=== PATIENT | female | born 1940 | race Caucasian/White ===

== ENCOUNTER 2017-04-25 14:52 | Emergency (ER) | payer OTHER ==
--- NOTE | 2017-04-25 15:08 | CPEKG ---
Heart Rate: 80 RR Interval: 750 P-R Interval: 216 QRSD Interval: 92 QT Interval: 376 QTC Interval: 434 P [place]: 55 QRS [place]: 49 T Wave [place]: 57 EKG Severity - OTHERWISE NORMAL ECG - EKG Impression: SINUS RHYTHM EKG Impression: ATRIAL PREMATURE COMPLEX Electronically Signed By: Lei Cordova 25-Apr-2017 19:32:19
--- NOTE | 2017-04-25 15:08 | EDPHY ---
H & P Time Seen by Provider: 04/25/17 15:07 HPI/ROS: CHIEF COMPLAINT: Diaphoresis, palpitations, nausea and epigastric pressure HISTORY OF PRESENT ILLNESS: The patient presents to the ED with diaphoresis, palpitations, nausea and epigastric pressure. Her symptoms began approximately an hour prior to arrival while eating lunch. The patient did not have vomiting or diarrhea. The patient states that her symptoms have somewhat improved however not entirely resolved. The patient denies any complaints of asymmetric calf pain or swelling. She denies history of recent surgery. The patient does have a history of diabetes controlled with diet. She is also on a statin for hyperlipidemia. The patient has no recent surgery. The patient denies any melena or hematemesis. Patient states that her symptoms are currently mild in nature and she primarily is bothered by nausea and generalized weakness. The patient did received 2 cortisone injections for hip bursitis over the past 2 weeks. The patient has had some side effects including headache, poor appetite in general malaise following these injections. REVIEW OF SYSTEMS: A comprehensive 10 point review of systems is otherwise negative aside from elements mentioned in the history of present illness. Source: Family Exam Limitations: No limitations - Medical/Surgical History PMH: Past medical history: Diabetes, hyperlipidemia - Family History Significant Family History: No pertinent family hx - Social History Smoking Status: Former smoker Alcohol Use: Occasionally - Physical Exam Exam: General Appearance: Alert, no distress Eyes: Pupils equal and round no pallor or injection ENT, Mouth: Mucous membranes moist Respiratory: There are no retractions, lungs are clear to auscultation Cardiovascular: Regular rate and rhythm Gastrointestinal: Minimal epigastric tenderness to palpation, no peritoneal signs, normal bowel sounds Neurological: A&O, normal motor function, normal sensory exam, normal cranial nerves Skin: Warm and dry, no rashes Musculoskeletal: Neck is supple nontender Extremities: symmetrical, full range of motion Constitutional: Initial Vital Signs Temperature (C) 36.6 C 04/25/17 15:04 Heart Rate 86 04/25/17 15:04 Respiratory Rate 20 04/25/17 15:04 Blood Pressure 158/92 H 04/25/17 15:04 O2 Sat (%) 99 04/25/17 15:04 O2 Delivery Mode Room Air Allergies/Adverse Reactions: codeine Allergy (Verified 04/25/17 15:09) hydromorphone [From Dilaudid] Allergy (Verified 04/25/17 15:09) Home Medications: Medication Instructions Recorded Aloe Vera 04/25/17 Atorvastatin Calcium 04/25/17 CO Q-10 04/25/17 Calcium Citrate 04/25/17 Carisoprodol 04/25/17 Celecoxib 04/25/17 Cinnamon 04/25/17 Curcumin 04/25/17 Fish Oil 04/25/17 Florasinus 04/25/17 Lexapro 04/25/17 Magnesium 04/25/17 Migrelief Caplet 04/25/17 Omeprazole 04/25/17 Ondansetron Odt [Zofran Odt] 4 mg PO Q4PRN PRN #20 tab 04/25/17 Preservision Softgel 04/25/17 traMADol 04/25/17 Medical Decision Making - Diagnostics EKG Interpretation: EKG: Complete interpretation has been separately recorded in the [employer] archive. Summary impression: Sinus rhythm, multiple PACs noted, no ST segment elevation or depression appreciated ED Course/Re-evaluation: The patient presents to the ED with complaints of epigastric pain, nausea, palpitations and diaphoresis. The patient has no evidence of acute ischemia on her initial EKG. Her initial troponin is normal. The patient did have minimal epigastric discomfort. She had an IV established. She received a L of normal saline. She received 4 mg of IV Zofran. The patient's D-dimer is negative which I feel adequately excludes pulmonary embolism. The patient's GI labs including her liver function tests and lipase are within normal limits. I re-evaluated the patient at 4:30 p.m.. She tells me she is feeling better and is essentially symptom-free. The patient did undergo a repeat EKG which continues to demonstrate no evidence of ischemia. The patient did endorse some symptoms of dark urine during the time of the 2nd evaluation. A urinalysis was obtained which demonstrates no acute abnormalities. I discussed with patient the plan to obtain a 4 hour troponin in the emergency department. Patient presents to the ED after an episode of atypical chest pain. She does understand that we cannot fully exclude the presence of coronary artery disease. Patient has had 2-troponins in the ED. Her nausea has resolved. I had a lengthy discussion with options with the patient. She has been offered admission to the hospital verses discharged home and returning for recurrent symptoms. She is comfortable being discharged at this point time. She has been informed that we cannot fully exclude the presence of coronary artery disease and close follow up with Cardiology is indicated. I do feel the patient likely is experiencing primarily a GI related phenomena. She will be given a prescription for Zofran for management of the symptoms. Differential Diagnosis: Differential diagnosis considered includes acute coronary syndrome, pulmonary embolism, pancreatitis, cholecystitis, peptic ulcer disease, dehydration, gastroenteritis - Data Points Laboratory Results: Laboratory Results 04/25/17 15:25 04/25/17 15:25 04/25/17 04/25/17 04/25/17 18:05 16:40 16:40 WBC RBC Hgb Hct MCV MCH MCHC RDW Plt Count MPV Neut % (Auto) Lymph % (Auto) [place] % (Auto) Eos % (Auto) Baso % (Auto) Nucleat RBC Rel Count Absolute Neuts (auto) Absolute Lymphs (auto) Absolute Monos (auto) Absolute Eos (auto) Absolute Basos (auto) Absolute Nucleated RBC Immature Gran % Immature Gran # D-Dimer Sodium Potassium Chloride Carbon Dioxide Anion Gap BUN Creatinine Estimated GFR Glucose Calcium Total Bilirubin Conjugated Bilirubin Unconjugated Bilirubin AST ALT Alkaline Phosphatase Troponin I 0.012 ng/mL ng/mL (0-0.034) Total Protein Albumin Lipase Urine Color YELLOW Cancelled Urine Appearance CLEAR Cancelled Urine pH 7.0 Cancelled (5.0-7.5) Ur Specific [place] 1.015 Cancelled (1.002-1.030) Urine Protein NEGATIVE Cancelled (NEGATIVE) Urine Ketones NEGATIVE Cancelled (NEGATIVE) Urine Blood NEGATIVE Cancelled (NEGATIVE) Urine Nitrate NEGATIVE Cancelled (NEGATIVE) Urine Bilirubin NEGATIVE Cancelled (NEGATIVE) Urine Urobilinogen 0.2 EU EU Cancelled (0.2-1.0) Ur Leukocyte Esterase NEGATIVE Cancelled (NEGATIVE) Urine RBC NONE SEEN /hpf /hpf (0-3) Urine WBC NONE SEEN /hpf /hpf (0-3) Ur Epithelial Cells 1+ /lpf /lpf (NONE-1+) Urine Mucus TRACE /lpf /lpf (NONE-1+) Urine Glucose NEGATIVE Cancelled (NEGATIVE) 04/25/17 04/25/17 04/25/17 15:25 15:25 15:25 WBC 10.40 10^3/uL H 10^3/uL (3.80-9.50) RBC 5.05 10^6/uL 10^6/uL (4.18-5.33) Hgb 15.0 g/dL g/dL (12.6-16.3) Hct 43.1 % % (38.0-47.0) MCV 85.3 fL fL (81.5-99.8) MCH 29.7 pg pg (27.9-34.1) MCHC 34.8 g/dL g/dL (32.4-36.7) RDW 12.7 % % (11.5-15.2) Plt Count 334 10^3/uL 10^3/uL (150-400) MPV 9.3 fL fL (8.7-11.7) Neut % (Auto) 73.8 % % (39.3-74.2) Lymph % (Auto) 17.5 % % (15.0-45.0) [place] % (Auto) 7.6 % % (4.5-13.0) Eos % (Auto) 0.2 % L % (0.6-7.6) Baso % (Auto) 0.4 % % (0.3-1.7) Nucleat RBC Rel Count 0.0 % % (0.0-0.2) Absolute Neuts (auto) 7.68 10^3/uL H 10^3/uL (1.70-6.50) Absolute Lymphs (auto) 1.82 10^3/uL 10^3/uL (1.00-3.00) Absolute Monos (auto) 0.79 10^3/uL 10^3/uL (0.30-0.80) Absolute Eos (auto) 0.02 10^3/uL L 10^3/uL (0.03-0.40) Absolute Basos (auto) 0.04 10^3/uL 10^3/uL (0.02-0.10) Absolute Nucleated RBC 0.00 10^3/uL 10^3/uL (0-0.01) Immature Gran % 0.5 % % (0.0-1.1) Immature Gran # 0.05 10^3/uL 10^3/uL (0.00-0.10) D-Dimer < 0.27 ug/mLFEU ug/mLFEU (0.00-0.50) Sodium 135 mEq/L mEq/L (134-144) Potassium 3.8 mEq/L mEq/L (3.5-5.2) Chloride 96 mEq/L L mEq/L (97-110) Carbon Dioxide 22 mEq/l mEq/l (22-31) Anion Gap 17 mEq/L H mEq/L (8-16) BUN 19 mg/dL mg/dL (7-23) Creatinine 0.5 mg/dL L mg/dL (0.6-1.0) Estimated GFR > 60 Glucose 176 mg/dL H mg/dL (70-100) Calcium 9.1 mg/dL mg/dL (8.5-10.4) Total Bilirubin 0.5 mg/dL mg/dL (0.1-1.4) Conjugated Bilirubin 0.2 mg/dL mg/dL (0.0-0.5) Unconjugated Bilirubin 0.3 mg/dL mg/dL (0.0-1.1) AST 22 IU/L IU/L (14-46) ALT 30 IU/L IU/L (9-52) Alkaline Phosphatase 105 IU/L IU/L (38-126) Troponin I < 0.012 ng/mL ng/mL (0-0.034) Total Protein 7.2 g/dL g/dL (6.3-8.2) Albumin 4.2 g/dL g/dL (3.5-5.0) Lipase 111.0 IU/L IU/L (23-300) Urine Color Urine Appearance Urine pH Ur Specific [place] Urine Protein Urine Ketones Urine Blood Urine Nitrate Urine Bilirubin Urine Urobilinogen Ur Leukocyte Esterase Urine RBC Urine WBC Ur Epithelial Cells Urine Mucus Urine Glucose Medications Given: Discontinued Medications Sodium Chloride (Ns) 1,000 mls @ 0 mls/hr IV ONCE ONE; Wide Open PRN Reason: Protocol Stop: 04/25/17 15:17 Last Admin: 04/25/17 15:39 Dose: 1,000 mls Ondansetron HCl (Zofran) 4 mg IVP EDNOW ONE Stop: 04/25/17 15:17 Last Admin: 04/25/17 15:35 Dose: 4 mg Ondansetron HCl (Zofran) 4 mg IVP EDNOW ONE Stop: 04/25/17 17:11 Last Admin: 04/25/17 17:19 Dose: 4 mg Departure - Departure Disposition: Home, Routine, Self-Care Clinical Impression: Nausea, Palpitations, Epigastric pain Condition: Good Instructions: Abdominal Pain (ED) Additional Instructions: 1. Based upon the testing done in the Emergency Department today we see no evidence of a heart attack. 2. We are unable to fully exclude coronary artery disease based upon the testing available in the Emergency Department. 3. For this reason, we would like you to be seen by cardiology for consideration of additional testing within the next 1-2 days. 4. Please contact the lieutenant general you have been referred to schedule this appointment as soon as possible. Their offices are typically open from 8:30am- 5pm M-F. 5. Please return to the Emergency Department immediately for any recurrent chest pain, difficulty breathing or other concerns. 6. Please use Zofran as needed for nausea. Referrals: OLIVERIO RIVAS [Primary Care Provider] - As per Instructions Anai Hager MD [Medical Doctor] - As per Instructions
[2017-04-25] MEDS ORDERED: ONDANSETRON 4 MG/2 ML VIAL IVP ONE ×2 (15:16→17:10)
[2017-04-25] MEDS ORDERED: NS 1,000 ML IV ONE (15:16)
[2017-04-25 15:29] LABS: % IMMATURE GRANULYOCYTES 0.5 % (0.0-1.1); ABSOLUTE IMMATURE GRANULOCYTES 0.05 10^3/uL (0.00-0.10); ADD DIFF? NO; ADD MORPH? NO; ADD SCAN? NO; ATYPICAL LYMPHOCYTE FLAG 0 (0-99); FRAGMENT RBC FLAG 0 (0-99); HEMATOCRIT 43.1 % (38.0-47.0); LEFT SHIFT FLG 0 (0-99); LIPEMIA HEMOLYSIS FLAG 90 (0-99); MEAN CELL HEMOGLOBIN 29.7 pg (27.9-34.1); MEAN CELL HEMOGLOBIN CONCENTR. 34.8 g/dL (32.4-36.7); MEAN CELL VOLUME 85.3 fL (81.5-99.8); MEAN PLATELET VOLUME 9.3 fL (8.7-11.7); PLATELET CLUMPS FLAG 0 (0-99); PLATELET COUNT 334 10^3/uL (150-400); RED BLOOD CELL COUNT 5.05 10^6/uL (4.18-5.33); RED CELL DISTRIBUTION WIDTH 12.7 % (11.5-15.2)
[2017-04-25 15:48] LABS: ALANINE AMINOTRANSFERASE 30 IU/L (9-52); ALBUMIN 4.2 g/dL (3.5-5.0); ALKALINE PHOSPHATASE 105 IU/L (38-126); ANION GAP 17 mEq/L (8-16); ASPARTATE AMINOTRANSFERASE 22 IU/L (14-46); BILIRUBIN,TOTAL 0.5 mg/dL (0.1-1.4); BILIRUBIN-CONJUGATED 0.2 mg/dL (0.0-0.5); BILIRUBIN-UNCONJUGATED 0.3 mg/dL (0.0-1.1); CALCIUM 9.1 mg/dL (8.5-10.4); CARBON DIOXIDE 22 mEq/l (22-31); CHLORIDE 96 mEq/L (97-110); CREATININE 0.5 mg/dL (0.6-1.0); GLOMERULAR FILTRATION RATE > 60; GLUCOSE 176 mg/dL (70-100); POTASSIUM 3.8 mEq/L (3.5-5.2); SODIUM 135 mEq/L (134-144); TOTAL PROTEIN 7.2 g/dL (6.3-8.2)
[2017-04-25 15:52] LABS: TROPONIN I < 0.012 ng/mL (0-0.034)
--- NOTE | 2017-04-25 16:17 | CPEKG ---
Heart Rate: 88 RR Interval: 682 P-R Interval: 232 QRSD Interval: 88 QT Interval: 380 QTC Interval: 460 P [place]: 72 QRS [place]: 46 T Wave [place]: 55 EKG Severity - ABNORMAL ECG - EKG Impression: SINUS RHYTHM EKG Impression: FIRST DEGREE AV BLOCK Electronically Signed By: Lei Cordova 25-Apr-2017 19:32:19
[2017-04-25 16:49] LABS: COLOR YELLOW; LEUKOCYTE ESTERASE,URINE NEGATIVE (NEGATIVE); NITRITE,URINE NEGATIVE (NEGATIVE)
[2017-04-25 16:53] LABS: MUCUS TRACE /lpf (NONE-1+); RBC,URINE NONE SEEN /hpf (0-3); WBC,URINE NONE SEEN /hpf (0-3)
[2017-04-25 18:35] VITALS: BP 119/72; PULSE 95; RESP 16; TEMP 98.2; O2SAT 95
== END 2017-04-25 19:01 | disposition home or self-care (01) ==
LOC: CED 14:52
DX: R00.2 Palpitations (principal); R10.13 Epigastric pain; R11.0 Nausea; E11.9 Type 2 diabetes mellitus without complications; Z87.891 Personal history of nicotine dependence
CPT/HCPCS: 80048-PO; 80076-PO; 81003-PO; 81015-PO; 83690-PO; 84484-PO; 85025-PO; 85378-PO; 96374; J2405